=== PATIENT | male | born 1955 | race Caucasian/White ===

== ENCOUNTER 2022-10-10 10:00 | Outpatient (CLI) | payer OTHER, SELFPAY ==
[2022-10-10 11:56] LABS: Chlamydia DNA Amplified* NOT DETECTED (No Detected); GC DNA Amplified* NOT DETECTED (No Detected)
== END 2022-10-10 10:01 | disposition home or self-care (01) ==
PROVIDERS: PCP Internal Medicine; Visit Provider Internal Medicine
DX: R36.9 Urethral discharge, unspecified (principal)
CPT/HCPCS: 87491; 87591